=== PATIENT | female | born 1940 | race Hispanic/Latino ===

== ENCOUNTER 2017-12-04 07:48 | Day surgery (SDC) | payer OTHER ==
[2017-11-30 11:30] VITALS: BP 157/69
[2017-11-30 11:54] LABS: BASOPHILS % (AUTO) 1.3 % (0.0-5.0); LYMPHOCYTES % (AUTO) 22.3 % (21.0-51.0); MEAN CORPUSCULAR HEMOGLOBIN 32.8 pg (27.0-33.0); MEAN CORPUSCULAR HGB CONC 35.2 g/dL (32.0-36.0); MEAN CORPUSCULAR VOLUME 93.4 fL (79-99); MONOCYTES % (AUTO) 5.3 % (3.0-13.0); NEUTROPHILS % (AUTO) 69.1 % (40.0-77.0); PLATELET COUNT (AUTO) 245 K/uL (130-400); RED BLOOD CELL COUNT(AUTO) 3.43 MIL/uL (4.00-5.50); RED CELL DISTRIBUTION WIDTH 16.4 % (11.0-15.5); WHITE BLOOD COUNT (AUTO) 8.8 K/uL (4.8-10.8)
[2017-11-30 12:15] LABS: INR 0.95 (0.85-1.15); PARTIAL THROMBOPLASTIN TIME 25.7 SEC (26.3-35.5)
[2017-11-30 12:47] LABS: POTASSIUM 3.7 mmol/L (3.5-5.1)
[~2017-12-04] VITALS: Ht 157.5 cm; Wt 86.2 kg
[2017-12-04] VITALS (11 sets, daily range): BP systolic 124–162; BP diastolic 6–68
[~2017-12-04 07:48] MED LIST: ASPI-1181 PO; ERGO500014 PO; FERROUS SULFATE PO; FLUO10TA3 PO; FOLI0.4T2 PO; FURO80TA3 PO; HUM10VIA6 SQ; HYDR-4154 PO; LABE300T2 PO; LEVO125T11 PO; PHEN100C9 PO; SODIUM CHLORIDE 0.9% 500ML 500 ML IV SCH
[2017-12-04] MEDS ORDERED: LIDOCAINE HCL-MPF 2% 5ML VIAL ONE (13:44)
[2017-12-04] MEDS ORDERED: IOHEXOL-350 50ML VIAL IV ONE (13:45)
[2017-12-04] MEDS ORDERED: SODIUM BICARB 50MEQ 50ML VIAL ONE (13:45)
[2017-12-04] MEDS ORDERED: NITROGLYCERIN 5 MG/ML 10 ML VIAL IV ONE (13:45)
[2017-12-04] MEDS ORDERED: IOHEXOL 350 MG/ML 100ML INFUS..BTL IV ONE (13:46)
[2017-12-04] MEDS ORDERED: MEPERIDINE-PF 25 MG/ML SYG ONE (13:49)
[2017-12-04] MEDS ORDERED: MIDAZOLAM HCL 1 MG/ML 2ML VIAL ONE (13:49)
[2017-12-04] MEDS ORDERED: GLUCAGON 1MG KIT 1 MG ML IM PRN (15:00)
[2017-12-04] MEDS ORDERED: DEXTROSE 50%-WATER 50 ML DISP.SYRIN IV PRN (15:00)
[2017-12-04] MEDS ORDERED: ACETAMINOPHEN 325 MG TAB PO PRN (15:00)
[2017-12-04] MEDS ORDERED: INSULIN HUMULIN R 100 UNIT/ML 3ML SQ SCH (16:30)
== END 2017-12-04 18:44 | disposition home or self-care (01) ==
LOC: DAH 07:48
PROVIDERS: ATTEND Internal Medicine Cardiovascular Disease
DX: I25.118 Atherosclerotic heart disease of native coronary artery with other forms of angina pectoris (principal); I35.0 Nonrheumatic aortic (valve) stenosis; I27.20 Pulmonary hypertension, unspecified; I12.0 Hypertensive chronic kidney disease with stage 5 chronic kidney disease or end stage renal disease; E11.22 Type 2 diabetes mellitus with diabetic chronic kidney disease; N18.6 End stage renal disease; Z99.2 Dependence on renal dialysis; Z98.890 Other specified postprocedural states; Z79.899 Other long term (current) drug therapy; Z90.710 Acquired absence of both cervix and uterus; Z90.49 Acquired absence of other specified parts of digestive tract
CPT/HCPCS: 36415; 71045; 80048; 82948 ×3; 85025; 85610; 85730; 93005; 93460; A4606; C1760; C1893; C1894 ×2; J1644; J2175; J2250; J3490 ×3; Q9965; Q9967 ×2; 99156; 99157

== ENCOUNTER 2020-05-18 09:02 | Day surgery (SDC) | payer MEDICARE ==
[2020-05-14 11:15] LABS: BASOPHILS % (AUTO) 0.7 % (0.0-5.0); EOSINOPHILS % (AUTO) 1.6 % (0.0-8.0); HEMATOCRIT 35.6 % (36-48); LYMPHOCYTES % (AUTO) 17.8 % (21.0-51.0); MEAN CORPUSCULAR HGB CONC 33.7 g/dL (32.0-36.0); MEAN CORPUSCULAR VOLUME 97.8 fL (79-99); MONOCYTES % (AUTO) 6.8 % (3.0-13.0); NEUTROPHILS % (AUTO) 72.3 % (40.0-77.0); PLATELET COUNT (AUTO) 173 K/uL (130-400); RED BLOOD CELL COUNT(AUTO) 3.64 MIL/uL (4.00-5.50); RED CELL DISTRIBUTION WIDTH 14.6 % (11.0-15.5); WHITE BLOOD COUNT (AUTO) 7.6 K/uL (4.8-10.8)
[2020-05-14 11:21] LABS: APPEARANCE,URINE CLOUDY (CLEAR); BILIRUBIN,URINE NEGATIVE (NEGATIVE); COLOR,URINE YELLOW (YELLOW); GLUCOSE, URINE (UA) >=1000 mg/dL (NEGATIVE); KETONES,URINE NEGATIVE (NEGATIVE); LEUKOCYTE ESTERASE ,URINE TRACE (NEGATIVE); NITRATE,URINE NEGATIVE (NEGATIVE); OCCULT BLOOD,URINE SMALL (NEGATIVE); PROTEIN,URINE 100 mg/dL (NEGATIVE); UROBILINOGEN,URINE 0.2 mg/dL (0.2-1.0)
[2020-05-14 11:22] LABS: CREATININE 4.7 mg/dL (0.5-1.5); POTASSIUM 5.3 mmol/L (3.5-5.1)
[2020-05-14 11:31] LABS: BACTERIA,URINE Many /HPF (None Seen); RBC,URINE 0-1 /HPF (0-1)
[2020-05-14 11:32] LABS: SQUAMOUS EPITHELIAL CELL,UR 0-2 /HPF (0-2)
[2020-05-14 11:49] LABS: INR 0.88 (0.85-1.15); PARTIAL THROMBOPLASTIN TIME 24.4 SEC (26.3-35.5); PROTHROMBIN TIME 9.6 SEC (9.6-11.6)
[2020-05-17 12:06] VITALS: BP 156/67
[2020-05-18] VITALS (10 sets, daily range): BP systolic 128–179; BP diastolic 64–90
[~2020-05-18 09:02] MED LIST changes: +ALPR0.255 PO; -ASPI-1181 PO; +ATOR40TA69 PO; -FERROUS SULFATE PO; +FLUT1DIS4 IH; -FOLI0.4T2 PO; +FURO40TA5 PO; -FURO80TA3 PO; -HUM10VIA6 SQ; -HYDR-4154 PO; -LABE300T2 PO; +NIFE30TA98 PO; +PROP40TA7 PO; +RANO500T2 PO; +SEVE800T7 PO
--- NOTE | 2020-05-18 10:30 | NUR ---
Pt with small minimally deep skin tear right above medial coccyx noted upon arrival. Small abrasions to bilateral groins following shaving, bandages applied.
[2020-05-18] MEDS ORDERED: SODIUM CHLORIDE 0.9% 1000ML 1,000 ML IV ONE (10:50)
[2020-05-18] MEDS ORDERED: INSULIN HUMULIN R 100 UNIT/ML 3ML ONE ×2 (10:52→14:17)
[2020-05-18] MEDS ORDERED: SODIUM BICARB 50MEQ 50ML VIAL 50 ML ONE (11:24)
[2020-05-18] MEDS ORDERED: IOHEXOL-350 50ML VIAL IV ONE (11:24)
[2020-05-18] MEDS ORDERED: LIDOCAINE HCL 2% 20ML ONE (11:24)
[2020-05-18] MEDS ORDERED: LIDOCAINE HCL 1% 20 ML VIAL ONE (11:24)
[2020-05-18] MEDS ORDERED: NITROGLYCERIN 2 MG/VIAL VIAL IV ONE (11:24)
[2020-05-18] MEDS ORDERED: HEPARIN SODIUM 1000UNIT/ML 10ML VIAL ONE ×2 (11:24→11:55)
[2020-05-18] MEDS ORDERED: IOHEXOL 350 MG/ML 100ML INFUS..BTL IV ONE (11:24)
[2020-05-18] MEDS ORDERED: ASPI-1197 PO (11:29)
[2020-05-18] MEDS ORDERED: INSULIN HUMULIN R 100 UNIT/ML 3ML SQ SCH ×3 (12:00→16:30)
[2020-05-18] MEDS ORDERED: MIDAZOLAM HCL 1 MG/ML 2ML VIAL ONE (12:03)
[2020-05-18] MEDS ORDERED: MEPERIDINE-PF 25 MG/ML SYG ONE (12:03)
[2020-05-18] MEDS ORDERED: GLUCAGON 1MG KIT 1 MG ML IM PRN (13:15)
[2020-05-18] MEDS ORDERED: SODIUM CHLORIDE 0.9% 10 ML VIAL IVP SCH (13:15)
[2020-05-18] MEDS ORDERED: DEXTROSE 50%-WATER 50 ML DISP.SYRIN IV PRN (13:15)
[2020-05-18] MEDS ORDERED: PHARMACY COMMUNICATION MISC SCH ×2 (14:45→15:15)
--- NOTE | 2020-05-18 17:30 | NUR ---
Pt discharged home, tolerating fluids/solids well, ambulating at baseline. Site to right groin remains soft and non-tender, dressing clean dry and intact. Pt denies any severe pain, nausea,or dizziness. Prescription given to daughter. Pt and daughter informed of routine and emergency care of right cath site. Pt and daughter deny any further questions at this time.
--- NOTE | 2020-05-18 17:44 | NUR ---
UA and C&S faxed to Dr. Chris Thompson's (Jerel CALDERON) office for review.
== END 2020-05-18 17:30 | disposition home or self-care (01) ==
LOC: DAH 09:02
PROVIDERS: ATTEND Internal Medicine Cardiovascular Disease
DX: I25.119 Atherosclerotic heart disease of native coronary artery with unspecified angina pectoris (principal); I35.0 Nonrheumatic aortic (valve) stenosis; E11.22 Type 2 diabetes mellitus with diabetic chronic kidney disease; I13.2 Hypertensive heart and chronic kidney disease with heart failure and with stage 5 chronic kidney disease, or end stage renal disease; N18.6 End stage renal disease; I42.9 Cardiomyopathy, unspecified; I50.43 Acute on chronic combined systolic (congestive) and diastolic (congestive) heart failure; E66.9 Obesity, unspecified; E03.9 Hypothyroidism, unspecified; Z79.01 Long term (current) use of anticoagulants; Z88.8 Allergy status to other drugs, medicaments and biological substances; Z79.899 Other long term (current) drug therapy; Z99.2 Dependence on renal dialysis; Z98.890 Other specified postprocedural states; Z90.710 Acquired absence of both cervix and uterus; Z90.49 Acquired absence of other specified parts of digestive tract; Z79.890 Hormone replacement therapy
CPT/HCPCS: 36415; 71045; 80048; 81001; 82948 ×3; 85025; 85610; 85730; 87077; 87088; 87186; 93005; 93460; C1760; C1769 ×3; C1893; C1894 ×3; J1644 ×2; J1815 ×2; J2175; J2250; J3490 ×3; J7030; Q9965; Q9967 ×2; 99156; 99157

== ENCOUNTER → 2020-07-16 | Outpatient (CLI) | payer MEDICARE ==
[~2020-07-16] MED LIST changes: +ASPI-1197 PO; +IOHEXOL 350 MG/ML 100ML INFUS..BTL IV ONE; -SODIUM CHLORIDE 0.9% 500ML 500 ML IV SCH
== END | disposition home or self-care (01) ==
LOC: RAH 07:54
PROVIDERS: ATTEND Internal Medicine Cardiovascular Disease
DX: I35.0 Nonrheumatic aortic (valve) stenosis (principal); J90 Pleural effusion, not elsewhere classified; K57.30 Diverticulosis of large intestine without perforation or abscess without bleeding; I70.0 Atherosclerosis of aorta
CPT/HCPCS: 74174; 75574; Q9967